=== PATIENT | female | born 1965 | race American Indian/Alaskan Native ===

== ENCOUNTER 2017-07-02 09:56 | Outpatient (CLI) | payer MEDICARE ==
--- NOTE | 2017-07-02 17:44 | XRay Report ---
FINAL REPORT EXAM: XR HIP 2-3V RT HISTORY: RIGHT HIP PAIN TECHNIQUE: Right hip two views PRIORS: None. 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 Components appear intact. No abnormal bony lucencies are identified. No acute fractures are seen. Bony pelvis is unremarkable. There is some remodeling of the right acetabulum noted. IMPRESSION: Right hip prosthesis No acute abnormality identified
== END 2017-07-02 09:57 | disposition home or self-care (01) ==
LOC: SPVIMAG 09:56
PROVIDERS: ATTEND Orthopaedic Surgery Sports Medicine
DX: M25.551 Pain in right hip (principal); Z96.641 Presence of right artificial hip joint